=== PATIENT | male | born 1965 | race Caucasian/White ===

== ENCOUNTER 2019-01-23 16:54 | Emergency (ER) | payer SELFPAY ==
[2019-01-23] MEDS: CEFAZOLIN 1 GM/50 ML (PMX) 50 ML IVPB (17:10)
[2019-01-23] MEDS: morphine 10 MG INJ IV ×2 (17:10→19:01)
[2019-01-23] MEDS ORDERED: LIDOCAINE 1% (MDV) 20 ML INJ (17:28)
[2019-01-23] MEDS: LIDOCAINE 1% (MPF) 5 ML VIAL INJ (17:30)
[2019-01-23] MEDS: DIPHTH/TET/ACEL PERTUSS (ADULT) 0.5 ML VIAL IM* (17:53)
[2019-01-23] MEDS: morphine 4 MG/ML VIAL IV (18:06)
== END 2019-01-23 19:08 | disposition short-term general hospital (02) ==
LOC: E/R 16:54
DX: S67.22XA Crushing injury of left hand, initial encounter (principal); V49.49XA Driver injured in collision with other motor vehicles in traffic accident, initial encounter; Z23 Encounter for immunization
CPT/HCPCS: 29125; 73110-LT; 73130-LT; 90471; 90715; 96365; 96375; 96376; 99285-25